=== PATIENT | female | born 1960 | race Two or more races ===

== ENCOUNTER 2023-12-31 18:57 | Emergency (ER) | payer OTHER, MEDICAID ==
[~2023-12-31] VITALS: Ht 165.1 cm; Wt 81.7 kg
[2023-12-31 19:38] VITALS: PULSE 102; RESP 20; O2SAT 95
[2023-12-31] MEDS: SODIUM CHLORIDE 0.9% 1,000 ML IV ONE ×2 (20:12→22:07)
[2023-12-31] MEDS: ONDANSETRON HCL 4 MG/2 ML VIAL IV ONE (20:16)
[2023-12-31] MEDS: IOHEXOL 300 MG/ML 100ML BOTTLE IJ ONE (20:32)
[2023-12-31 20:51] LABS: Alanine Aminotransferase 32 U/L (7-40); Albumin 4.3 g/dL (3.2-4.8); Alkaline Phosphatase 121 U/L (46-116); Anion Gap 10 (5-15); Aspartate Aminotransferase 40 U/L (13-40); BUN/Creatinine Ratio 18.3 (10.0-20.0); Blood Urea Nitrogen 17 mg/dL (9-23); Calcium 8.9 mg/dL (8.7-10.4); Carbon Dioxide 21 mmol/L (20-30); Chloride 107 mmol/L (98-107); Glucose 102 mg/dL (74-106); Lipase 66 U/L (12-53); Potassium 3.4 mmol/L (3.5-5.1); Sodium 138 mmol/L (136-145)
[2023-12-31 20:52] LABS: Bilirubin, Total 0.2 mg/dL (0.2-1.0); Total Protein 6.8 g/dL (5.7-8.2)
[2023-12-31 21:05] LABS: INR 1.08 (0.9-1.15); Partial Thromboplastin Time 29.3 SEC (24.5-34.5); Prothrombin Time 11.4 sec (9.3-11.8)
[2023-12-31 21:21] LABS: Hematocrit 30.5 % (36.0-46.0); Hemoglobin 10.2 g/dL (12.2-16.2); Mean Corpuscular Hemoglobin 28.6 pg (28.0-32.0); Mean Corpuscular Hgb Conc. 33.5 g/dL (32.0-36.0); Mean Corpuscular Volume 85.4 fL (80.0-100.0); Platelet Count (auto) 293 10^3/uL (140-450); Red Blood Cells 3.58 10^6/uL (4.0-5.20); Red Cell Distribution Width 15.5 % (11.8-14.3); White Blood Cell 14.5 10^3/uL (4.4-10.8)
[2023-12-31 21:30] LABS: Basophils % (manual) 0 (0.0-2.0); Blast Cells 0; Eosinophils % (manual) 0 (0-7); Metamyelocytes % 0; Myelocytes % 0; Promyelocytes % 0; Reactive Lymphocytes 0
[2023-12-31] MEDS: levoFLOXacin 500MG 100 ML IV ONE (21:44)
[2023-12-31 21:56] LABS: Anisocytosis Slight; Band Neutrophils % (manual) 22; Lymphocytes % (manual) 2 (10.0-50.0); Monocytes % (manual) 1 (0-12); Platelet Estimate Adequate
[2023-12-31] MEDS: MORPHINE SULFATE 4 MG/ML SYR/VIAL IV ONE (22:06)
[2023-12-31 23:19] LABS: Urine Bacteria None Seen /hpf (None Seen)
[2023-12-31] MEDS: KETOROLAC TROMETH 30 MG/ML 1ML VIAL IV ONE (23:30)
[2023-12-31 23:33] LABS: Urine Blood Negative /uL (Negative); Urine Clarity Clear (Clear); Urine Color Light-Yellow (Yellow); Urine Protein, UAD Negative (Negative); Urine Specific Gravity 1.038 (1.001-1.035); Urine Urobilinogen Normal (Negative); Urine WBC 2 /hpf (0 - 5); Urine pH 5.5 (5.0-9.0)
[2023-12-31] MEDS ORDERED: ZOFR4T SL (23:56)
[2024-01-01] VITALS: BP 94/48; PULSE 94; RESP 18; TEMP 98.8; O2SAT 94
== END 2024-01-01 00:52 | disposition home or self-care (01) ==
LOC: ER 18:57 → EDBD 18:57 → ER 01-01 00:49
DX: K52.9 Noninfective gastroenteritis and colitis, unspecified (principal); E11.9 Type 2 diabetes mellitus without complications; E66.9 Obesity, unspecified; Z68.30 Body mass index [BMI] 30.0-30.9, adult; Z86.2 Personal history of diseases of the blood and blood-forming organs and certain disorders involving the immune mechanism; Z98.890 Other specified postprocedural states; Z88.1 Allergy status to other antibiotic agents; Z88.8 Allergy status to other drugs, medicaments and biological substances
CPT/HCPCS: 36415; 71045; 74177; 80053; 81001; 83605; 83690; 83880; 84484; 85007; 85027; 85610; 85730; 93005; 96361; 96374; 96375; 99285; J1885; J2270; J2405; J7030; Q9967

== ENCOUNTER 2024-12-29 16:39 | Inpatient (IN) | payer OTHER, MEDICAID ==
[~2024-12-29] VITALS: Ht 160 cm; Wt 67.6 kg
[~2024-12-29 16:39] MED LIST: ZOFR4T SL
--- NOTE | 2024-12-29 17:39 | ED.PDOC ---
HPI Comments This is a 64-year-old female with past medical history of hypertension, dyslipidemia, and diabetes came to the hospital due to chest pain since 4 days. Pain is localized at substernal area, radiating to the neck and left arm, pressure-like in nature, 8/10 in intensity which worsened with taking deep breaths. She also reports of nausea, shortness of breath. She denies fever, cough, or any recent sick contact or chest trauma. Chief Complaint: Chest Pain Time Seen by MD: 17:08 Allergies: Coded Allergies: Acetaminophen (Verified Allergy, Severe, 12/31/23) Hydrocodone (Verified Allergy, Severe, 12/31/23) Ceftriaxone (Verified Allergy, Unknown, 12/31/23) Ciprofloxacin (Verified Allergy, Unknown, 12/31/23) Levofloxacin (Verified Allergy, Unknown, 12/31/23) Moxifloxacin (Verified Allergy, Unknown, 12/31/23) Trimethoprim (Verified Allergy, Unknown, 12/31/23) Home Meds Active Scripts Ondansetron Odt 4MG Tab (ZOFRAN PO) 4 Mg Tb, 4 MG SL QIDPRN PRN, #20 TAB ODT TAB-DISSOLVE IN MOUTH, THEN SWALLOW Prov:HAYES CASILLAS MD 12/31/23 Mode of Arrival: Ambulatory Past Medical History PAST MEDICAL HISTORY: Anemia, DM, GERD Surgical History: Hernia Repair LEGAL ADMINISTRATIVE ASSISTANT History: Denies all LEGAL ADMINISTRATIVE ASSISTANT Hx Family History Family History: Unknown Social History Smoker: Non-Smoker Alcohol: Denies ETOH Use Drugs: Denies Drug Use Lives In: Home Physical Exam General Appearance: No Apparent Distress, Normal HEENT: Normal ENT Inspection, Pharynx Normal, TMs Normal Neck: Full Range of Motion, Non-Tender, Normal, Normal Inspection Respiratory: Chest Non-Tender, Lungs Clear, No Accessory Muscle Use, No Respiratory Distress, Normal Breath Sounds Cardiovascular: No Edema, No JVD, No Murmur, No Gallop, Normal Peripheral Pulses, Regular Rate/Rhythm Breast Exam: Deferred Gastrointestinal: No Organomegaly, Non Tender, No Pulsatile Mass, Normal Bowel Sounds, Soft Genitalia: Deferred Pelvic: Deferred Rectal: Deferred Extremities: No calf tenderness, Normal capillary refill, Normal inspection, Normal range of motion, Non-tender, No pedal edema Musculoskeletal : Apperance: Normal Neurologic: Alert, senior medical transcriptionist II-XII nml as Tested, No Motor Deficits, Normal Affect, Normal Mood, No Sensory Deficits Cerebellar Function: Normal Reflexes: Normal Skin: Dry, Normal Color, Warm Lymphatic: No Adenopathy EKG EKG : Comments Sinus rhythm with no significant ST or T-wave changes. Was a procedure done? Was a procedure done?: No CP Differential Dx Differential Diagnosis: Electrolyte Disorder Differential Diagnosis: Angina, Chest Wall Pain, Costochondritis, Esophageal reflux/spasm, Gastritis, Myocardial Infarction, Pericarditis X-Ray, Labs, Meds, VS Vital Signs Date Time Temp Pulse Resp B/P (MAP) Pulse Ox O2 Delivery O2 Flow Rate FiO2 12/29/24 17:41 67 12/29/24 17:03 98.0 75 19 151/59 98 98.0 12/29/24 16:43 71 Lab Test 12/29/24 18:10 12/29/24 17:13 Range/Units Troponin I High Sensitivity Pending < 3 L </=34 ng/L White Blood Count 6.9 4.4-10.8 10^3/uL Red Blood Count 4.26 4.0-5.20 10^6/uL Hemoglobin 10.7 L 12.2-16.2 g/dL Hematocrit 34.1 L 36.0-46.0 % Mean Corpuscular Volume 80.1 80.0-100.0 fL Mean Corpuscular Hemoglobin 25.1 L 28.0-32.0 pg Mean Corpuscular Hemoglobin Concent 31.4 L 32.0-36.0 g/dL Red Cell Distribution Width 20.6 H 11.8-14.3 % Platelet Count 259 140-450 10^3/uL Mean Platelet Volume 8.7 6.9-10.8 fL Neutrophils (%) (Auto) 74.5 37.0-80.0 % Lymphocytes (%) (Auto) 12.9 10.0-50.0 % Monocytes (%) (Auto) 8.8 0.0-12.0 % Eosinophils (%) (Auto) 3.4 0.0-7.0 % Basophils (%) (Auto) 0.4 0.0-2.0 % Neutrophils # (Auto) 5.1 1.6-8.6 10 ^3/uL Lymphocytes # (Auto) 0.9 0.4-5.4 10 ^3/uL Monocytes # (Auto) 0.6 0-1.3 10 ^3/uL Eosinophils # (Auto) 0.2 0-0.8 10 ^3/uL Basophils # (Auto) 0 0-0.2 10 ^3/uL Nucleated Red Blood Cells 0.3 % Sodium Level 141 136-145 mmol/L Potassium Level 4.4 3.5-5.1 mmol/L Chloride Level 108 H 98-107 mmol/L Carbon Dioxide Level 22 20-31 mmol/L Anion Gap 11 5-15 Blood Urea Nitrogen 9 9-23 mg/dL Creatinine 0.91 0.550-1.02 mg/dL Glomerular Filtration Rate Calc 70 >90 mL/min BUN/Creatinine Ratio 9.9 L 10.0-20.0 Serum Glucose 108 H 74-106 mg/dL Calcium Level 9.1 8.7-10.4 mg/dL Total Bilirubin 0.2 0.2-1.0 mg/dL Aspartate Amino Transferase (AST) 27 13-40 U/L Alanine Aminotransferase (ALT) 19 7-40 U/L Alkaline Phosphatase 110 46-116 U/L B-Type Natriuretic Peptide Pending Total Protein 7.6 5.7-8.2 g/dL Albumin 4.5 3.2-4.8 g/dL Time of 1ST Reevaluation: 18:34 Reevaluation 1ST: Unchanged Patient Education/Counseling: Diagnosis, Treatment, Prognosis, Need For Follow Up Family Education/Counseling: No Family Present Comments Patient came to the hospital because of chest pain. Chest x-ray showed no significant intrathoracic abnormalities. EKGs showed normal sinus rhythm with no significant ST or T-wave changes. Patient was vitally within normal limits. Physical examination was nonsignificant. The patient was given aspirin, atorvastatin and morphine. Subsequent checkup, patient was still complaining of chest pain. The patient will be admitted in hospital for further woke up, and possible expert opinion SEPSIS Sepsis Screen Date sepsis recognized/suspect: Dec 29, 2024 Time Sepsis recognized/suspect: 1640 Recent Procedure: No On Antibiotic Therapy: No Respiratory Rate >20: No Heart Rate >90: No Temp<36 C (96.8 F) or >38.3 C: No SBP <90 or MAP <65 mmHG: No New Acute Mental Status Change: No Is the patient on CPAP, BIPAP,: No Physician Orders Troponin-I Hs (12/29/24 17:51) Troponin-I Hs (12/29/24 19:51) Electrocardigram (12/29/24 17:51) Electrocardigram (12/29/24 19:51) Drug Screen (12/29/24 17:35) Chest Xray 1 View (12/29/24 17:35) B-Type Natriuretic Peptide (12/29/24 17:35) Vital Signs Date Time Temp Pulse Resp B/P (MAP) Pulse Ox O2 Delivery O2 Flow Rate FiO2 12/29/24 17:41 67 12/29/24 17:03 98.0 75 19 151/59 98 98.0 12/29/24 16:43 71 Laboratory Tests Test 12/29/24 17:13 White Blood Count 6.9 10^3/uL (4.4-10.8) Departure 1 Departure Time of Disposition: 19:00 Impression: Primary Impression: Chest pain Additional Impression: Angina pectoris Disposition: ADMITTED INPATIENT Admit to: [facility] Condition: Guarded Critical Care Note Critical Care Time?: No Stability Stability form required: No Heart Score Heart Score: Heart Score Response (Comments) Value History Moderate Suspicious 1 EKG Normal 0 Age >65 2 Risk Factors >3 or Hx ASHD 2 Troponin Normal limit 0 Total 5 ISA CHAUHAN RESDIENT Dec 29, 2024 17:39
--- NOTE | 2024-12-29 17:42 | ECG ---
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
[2024-12-29] MEDS ORDERED: MORPHINE SULFATE 4 MG/ML SYR/VIAL IV ONE (17:45)
[2024-12-29] MEDS: ATORVASTATIN 20 MG TAB PO ONE (17:45)
[2024-12-29] MEDS: ONDANSETRON HCL 4 MG/2 ML VIAL IV ONE (17:45)
[2024-12-29] MEDS: NITROGLYCERIN 0.4 MG SL TAB SL ONE (17:45)
[2024-12-29 18:05] LABS: Hemoglobin 10.7 g/dL (12.2-16.2)
[2024-12-29 18:07] LABS: Hematocrit 34.1 % (36.0-46.0); Mean Corpuscular Hemoglobin 25.1 pg (28.0-32.0); Mean Corpuscular Volume 80.1 fL (80.0-100.0); Nucleated Red Blood Cells % 0.3 %
[2024-12-29 18:21] LABS: Alanine Aminotransferase 19 U/L (7-40); Albumin 4.5 g/dL (3.2-4.8); Alkaline Phosphatase 110 U/L (46-116); Anion Gap 11 (5-15); BUN/Creatinine Ratio 9.9 (10.0-20.0); Blood Urea Nitrogen 9 mg/dL (9-23); Calcium 9.1 mg/dL (8.7-10.4); Carbon Dioxide 22 mmol/L (20-31); Potassium 4.4 mmol/L (3.5-5.1); Sodium 141 mmol/L (136-145); Total Protein 7.6 g/dL (5.7-8.2)
[2024-12-29 18:26] LABS: Bilirubin, Total 0.2 mg/dL (0.2-1.0); Chloride 108 mmol/L (98-107); Glucose 108 mg/dL (74-106)
--- NOTE | 2024-12-29 18:28 | DVH ---
EXAM: XY CHEST XRAY 1 VIEW HISTORY: chest ppain TECHNIQUE: 1 view of the chest COMPARISON: XY CHEST PORTABLE on DOS: 12/31/23 FINDINGS/IMPRESSION: LUNGS: No pleural effusion, consolidation, or pneumothorax MEDIASTINUM: Unremarkable BONES: No acute osseous abnormality OTHER: None
[2024-12-29] MEDS: ATORVASTATIN 20 MG TAB PO SCH (22:00)
--- NOTE | 2024-12-29 22:45 | DVHHP2 ---
History of Present Illness Reason for Visit: Chest pain History of Present Illness 64-year-old female presents for evaluation of chest pain. Patient endorses a four day history of substernal pressure-like/sharp pain that is nonradiating. She also reports left arm numbness and an intermittent headache. Denies cough or fever. No other acute complaints reported. Past Medical History Hypertension, GERD, dyslipidemia, anemia Past Surgical History Cholecystectomy, appendectomy, right nephrectomy, hernia repair Family History Noncontributory Smoke: No ALCOHOL: none Drugs: None Lives: with Family Review of Systems Review of Systems Review of systems are currently negative otherwise addressed in HPI. Allergies: Coded Allergies: Acetaminophen (Verified Allergy, Severe, 12/31/23) Hydrocodone (Verified Allergy, Severe, 12/31/23) Ceftriaxone (Verified Allergy, Unknown, 12/31/23) Ciprofloxacin (Verified Allergy, Unknown, 12/31/23) Levofloxacin (Verified Allergy, Unknown, 12/31/23) Moxifloxacin (Verified Allergy, Unknown, 12/31/23) Trimethoprim (Verified Allergy, Unknown, 12/31/23) Medications Current Medications Medications Dose Ordered Sig/Reena Route Start Time Stop Time Status Last Admin Dose Admin Lisinopril 10 mg DAILY PO 12/30/24 10:00 Atorvastatin Calcium 20 mg HS PO 12/29/24 22:00 Aspirin 81 mg DAILY PO 12/30/24 10:00 Ondansetron HCl 4 mg Q4HP PRN IV 12/29/24 20:15 Nitroglycerin 0.4 mg Q5MINP PRN SL 12/29/24 20:15 Morphine Sulfate 2 mg Q30M PRN IV 12/29/24 20:15 Exam Vital Signs Vital Signs Date Time Temp Pulse Resp B/P (MAP) Pulse Ox O2 Delivery O2 Flow Rate FiO2 12/29/24 20:44 98.7 61 20 126/65 (85) 97 98.7 12/29/24 20:44 Room Air Exam Gen: 64-year-old female Skin: Warm, dry, normal color and texture, no rash. HEENT: Normocephalic atraumatic, mucous membranes moist and pink. Neck: Cervical and supraclavicular nodes normal without enlargement, trachea is midline, thyroid gland is normal without masses. Pulmonary: Clear to auscultation and percussion bilaterally. Cardiac: Regular rate and rhythm. No murmur Abdomen: Soft, nontender, nondistended, bowel sounds present all 4 quadrants, no guarding, no rigidity, no organomegaly. Extremities: No cyanosis, clubbing, no edema Neuro: Cranial nerves II through XII grossly intact, normal affect and speech, no focal motor deficits. In mild distress Labs/Xrays ORDERING PHYSICIAN: ISA CHAUHAN PROCEDURE(s): CXR1 - CHEST XRAY 1 VIEW REASON: chest ppain ORDER NUMBER(s): [id number], ACCESSION NUMBER(s): [id number] EXAM: XY CHEST XRAY 1 VIEW HISTORY: chest ppain TECHNIQUE: 1 view of the chest COMPARISON: XY CHEST PORTABLE on DOS: 12/31/23 FINDINGS/IMPRESSION: LUNGS: No pleural effusion, consolidation, or pneumothorax MEDIASTINUM: Unremarkable BONES: No acute osseous abnormality OTHER: None Labs Test 12/29/24 18:10 12/29/24 17:13 Range/Units Troponin I High Sensitivity 3 L </=34 ng/L White Blood Count 6.9 4.4-10.8 10^3/uL Red Blood Count 4.26 4.0-5.20 10^6/uL Hemoglobin 10.7 L 12.2-16.2 g/dL Hematocrit 34.1 L 36.0-46.0 % Mean Corpuscular Volume 80.1 80.0-100.0 fL Mean Corpuscular Hemoglobin 25.1 L 28.0-32.0 pg Mean Corpuscular Hemoglobin Concent 31.4 L 32.0-36.0 g/dL Red Cell Distribution Width 20.6 H 11.8-14.3 % Platelet Count 259 140-450 10^3/uL Mean Platelet Volume 8.7 6.9-10.8 fL Neutrophils (%) (Auto) 74.5 37.0-80.0 % Lymphocytes (%) (Auto) 12.9 10.0-50.0 % Monocytes (%) (Auto) 8.8 0.0-12.0 % Eosinophils (%) (Auto) 3.4 0.0-7.0 % Basophils (%) (Auto) 0.4 0.0-2.0 % Neutrophils # (Auto) 5.1 1.6-8.6 10 ^3/uL Lymphocytes # (Auto) 0.9 0.4-5.4 10 ^3/uL Monocytes # (Auto) 0.6 0-1.3 10 ^3/uL Eosinophils # (Auto) 0.2 0-0.8 10 ^3/uL Basophils # (Auto) 0 0-0.2 10 ^3/uL Nucleated Red Blood Cells 0.3 % Sodium Level 141 136-145 mmol/L Potassium Level 4.4 3.5-5.1 mmol/L Chloride Level 108 H 98-107 mmol/L Carbon Dioxide Level 22 20-31 mmol/L Anion Gap 11 5-15 Blood Urea Nitrogen 9 9-23 mg/dL Creatinine 0.91 0.550-1.02 mg/dL Glomerular Filtration Rate Calc 70 >90 mL/min BUN/Creatinine Ratio 9.9 L 10.0-20.0 Serum Glucose 108 H 74-106 mg/dL Calcium Level 9.1 8.7-10.4 mg/dL Total Bilirubin 0.2 0.2-1.0 mg/dL Aspartate Amino Transferase (AST) 27 13-40 U/L Alanine Aminotransferase (ALT) 19 7-40 U/L Alkaline Phosphatase 110 46-116 U/L B-Type Natriuretic Peptide 432.67 0-100 pg/mL Total Protein 7.6 5.7-8.2 g/dL Albumin 4.5 3.2-4.8 g/dL SEPSIS Sepsis Screen Date sepsis recognized/suspect: Dec 29, 2024 Time Sepsis recognized/suspect: 2050 Recent Procedure: No On Antibiotic Therapy: No Respiratory Rate >20: No Heart Rate >90: No Temp<36 C (96.8 F) or >38.3 C: No SBP <90 or MAP <65 mmHG: No New Acute Mental Status Change: No Is the patient on CPAP, BIPAP,: No Physician Orders Electrocardigram (12/29/24 17:51) Electrocardigram (12/29/24 19:51) Drug Screen (12/29/24 17:35) Chest Xray 1 View (12/29/24 17:35) Lisinopril Tablet (Zestril Tablet) (12/30/24 10:00) Atorvastatin (Lipitor) (12/29/24 22:00) Aspirin Tablet (12/30/24 10:00) Basic Metabolic Panel (12/30/24 04:00) Admit (12/29/24 20:01) Ondansetron Hcl (Zofran) (12/29/24 20:15) Cardiac Diet-2gna,Lofat,Lochol (12/30/24 Breakfast) Echo 2d Mode Cardiac Dop (12/29/24 20:01) Condition: Fair (12/29/24 20:01) Bedrest With Bathroom Privileg (12/29/24 20:01) Nitroglycerin Sublingual (Ntrostat Subli (12/29/24 20:15) Morphine Sulfate Injection (12/29/24 20:15) Stat Ekg For Chest Pain (12/29/24 20:01) Notify Md Of Changes From Base (12/29/24 20:) Market Research Worker For 24 Hours (12/29/24 20:01) Emergency Dysrhythmia Protocol (12/29/24 20:01) Rhythm Strips Once Every Shift (12/29/24 20:01) Oxygen By Nasal Cannula (12/29/24 20:01) Enalapril Tablet (Vasotec Tablet) (12/30/24 10:00) Vital Signs Date Time Temp Pulse Resp B/P (MAP) Pulse Ox O2 Delivery O2 Flow Rate FiO2 12/29/24 20:44 98.7 61 20 126/65 (85) 97 98.7 12/29/24 20:44 65 20 97 Room Air 12/29/24 17:41 67 12/29/24 17:03 98.0 75 19 151/59 98 98.0 12/29/24 16:43 71 Laboratory Tests Test 12/29/24 17:13 White Blood Count 6.9 10^3/uL (4.4-10.8) Assessment/Plan Assessment/Plan Assessment Chest pain rule out ACS Hypertension Chronic anemia Plan Admit the patient to telemetry to the hospitalist Echocardiogram pending Resume home medications Continue treatment per orders. Plan discussed with: Patient My Orders Orders - AGUSTIN SALINAS Procedure Category Date Status Time Lisinopril Tablet PHA 12/30/24 In Process (Zestril Tablet) 10:00 Atorvastatin (Lipitor) PHA 12/29/24 In Process 22:00 Aspirin Tablet PHA 12/30/24 In Process 10:00 Basic Metabolic Panel LAB 12/30/24 Verified 04:00 Admit ADMIT 12/29/24 Transmitted 20:01 Ondansetron Hcl PHA 12/29/24 In Process (Zofran) 20:15 Cardiac DIET 12/30/24 Transmitted Diet-2gna,Lofat,Lochol Breakfast Echo 2d Mode Cardiac US 12/29/24 Logged DOP 20:01 Condition: Fair [facility] 12/29/24 In Process 20:01 Bedrest With Bathroom [facility] 12/29/24 In Process Privileg 20:01 Nitroglycerin [facility] 12/29/24 In Process Sublingual (Ntrostat 20:15 Morphine Sulfate [facility] 12/29/24 In Process Injection 20:15 Stat Ekg For Chest [facility] 12/29/24 In Process Pain 20:01 Notify Of Changes [facility] 12/29/24 In Process From Base 20:01 Market Research Worker For [facility] 12/29/24 In Process 24 Hours 20:01 Emergency Dysrhythmia [facility] 12/29/24 In Process Protocol 20:01 Rhythm Strips Once [facility] 12/29/24 In Process Every Shift 20:01 Oxygen By Nasal RT 12/29/24 Transmitted Cannula 20:01 Enalapril Tablet [facility] 12/30/24 Verified (Vasotec Tablet) 10:00 Date of Service: Dec 29, 2024 Billing Provider: AGUSTIN SALINAS Common Visit Codes: [id number] INP/OBS CARE (HIGH) AGUSTIN SALINAS Dec 29, 2024 22:45
[2024-12-30] VITALS (7 sets, daily range): BP systolic 126–140; BP diastolic 51–86; PULSE 56–67; RESP 18–19; TEMP 97–97.6; O2SAT 93–98
[2024-12-30] MEDS: NITROGLYCERIN 0.4 MG SL TAB SL PRN (00:29)
[2024-12-30] MEDS ORDERED: TRAM50TA2 PO (00:34)
[2024-12-30] MEDS ORDERED: MONT-8 PO (00:34)
[2024-12-30] MEDS ORDERED: PANT40T PO (00:34)
[2024-12-30] MEDS: MORPHINE SULFATE INJ 2 MG/ml SYRG IV PRN ×2 (00:40→12:52)
--- NOTE | 2024-12-30 01:09 | ECG ---
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
--- NOTE | 2024-12-30 01:09 | ECG ---
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
[2024-12-30] MEDS: IBUPROFEN 400 MG TAB PO ONE (02:15)
[2024-12-30 07:10] LABS: Anion Gap 9 (5-15); Carbon Dioxide 26 mmol/L (20-31); Potassium 4.3 mmol/L (3.5-5.1); Sodium 142 mmol/L (136-145)
[2024-12-30 07:11] LABS: Calcium 9.1 mg/dL (8.7-10.4)
[2024-12-30 07:16] LABS: BUN/Creatinine Ratio 11.2 (10.0-20.0); Blood Urea Nitrogen 10 mg/dL (9-23); Glucose 92 mg/dL (74-106)
--- NOTE | 2024-12-30 07:19 | ECG ---
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
[2024-12-30 07:20] LABS: Chloride 107 mmol/L (98-107)
[2024-12-30] MEDS ORDERED: LISINOPRIL 5 MG TAB PO SCH (10:00)
[2024-12-30] MEDS: ENALAPRIL MALEATE 2.5 MG TAB PO SCH (11:09)
--- NOTE | 2024-12-30 11:28 | DVHPN2 ---
Subjective The patient is seen and examined at bedside. The patient complained of severe abdominal pain. The patient is allergic to [place] but can take morphine Reviewed: Care Plan, H&P, Labs, Medications, Previous Orders, Radiology Changes from previous H/P or p: No Changes Objective Vitals Vital Signs Date Time Temp Pulse Resp B/P (MAP) Pulse Ox O2 Delivery O2 Flow Rate FiO2 12/30/24 11:09 145/80 12/30/24 08:51 97.0 64 19 97 97.0 12/30/24 00:00 Room Air* 0 21 Intake/Output Intake and Output 12/30/24 07:00 Intake Total 0 ml Balance 0 ml Intake Oral 0 ml General Appearance: Alert, Oriented X3, Cooperative, mild distress HEENT: Atraumatic, PERRLA, EOMI, Mucous membr. moist/pink Neck: Supple Lungs: Clear to auscultation, Normal air movement Cardiovascular: Regular rate, Normal S1, Normal S2, No murmurs, Gallops, Rubs Abdomen: Normal bowel sounds, Soft, No tenderness Neuro: Cranial nerves 3-12 NL Psych/Mental Status: Mental status NL Medications Current Medications Medications Dose Ordered Sig/Reena Route Start Time Stop Time Status Last Admin Dose Admin Atorvastatin Calcium 20 mg HS PO 12/29/24 22:00 Aspirin 81 mg DAILY PO 12/30/24 10:00 12/30/24 10:00 81 MG Ondansetron HCl 4 mg Q4HP PRN IV 12/29/24 20:15 Nitroglycerin 0.4 mg Q5MINP PRN SL 12/29/24 20:15 12/30/24 00:29 0.4 MG Morphine Sulfate 2 mg Q30M PRN IV 12/29/24 20:15 12/30/24 01:19 2 MG Enalapril Maleate 2.5 mg DAILY PO 12/30/24 10:00 12/30/24 11:09 2.5 MG Laboratory Results Laboratory Tests 12/29/24 17:13 12/30/24 06:32 Chemistry Test 12/29/24 17:13 12/30/24 06:32 Albumin 4.5 g/dL (3.2-4.8) Calcium Level 9.1 mg/dL (8.7-10.4) 9.1 mg/dL (8.7-10.4) Total Protein 7.6 g/dL (5.7-8.2) Cardiac Markers Test 12/29/24 17:13 B-Type Natriuretic Peptide 432.67 pg/mL (0-100) LFT Test 12/29/24 17:13 Alanine Aminotransferase (ALT) 19 U/L (7-40) Alkaline Phosphatase 110 U/L (46-116) Aspartate Amino Transferase (AST) 27 U/L (13-40) Total Bilirubin 0.2 mg/dL (0.2-1.0) Labs and/or images reviewed: Labs reviewed by me Assessment/Plan Assessment/Plan Chest pain rule out ACS Hypertension Chronic anemia Abdominal pain Continuing current management. We will give morphine PRN for abdominal pain. Waiting for objective c developer to see the patient. Continuing hypertensive medication. This medical document was created using an electronic medical record system with M*M [employer] direct computerized dictation system. Although this document has been carefully reviewed, there may still be some phonetic and typographical errors. These areas are purely typographical due to imperfections of the software programs, and do not reflect any compromise in the patient's medical care. Plan discussed with: Patient Date of Service: Dec 30, 2024 Billing Provider: LAURA AL MD Common Visit Codes: [id number] INP/OBS CARE(HIGH) LAURA AL MD Dec 30, 2024 11:28
--- NOTE | 2024-12-30 20:02 | DVHSR ---
APPROVED REPORT EXAM: Two-dimensional and M-mode echocardiogram with Doppler and color Doppler. Blood Pressure: 132/5367 mmHg INDICATION Chest Pain RISK FACTORS Height: 5'3", Weight: 152 DIMENSIONS LVDd4.4 (3.8-5.7cm)LA (2D)4.0 (1.9-4.0cm)Aortic Root3.2 (2.0-3.7cm) LVDs2.4 (2.5-4.0cm)LA (MM) (1.9-4.0cm)Aortic Cusp Exc1.4 (1.5-2.0cm) EF (%) 76.0 (55-70%)Rt. Atrium3.2 (1.9-4.0cm)Asc. Aorta3.0 cm IVSd0.9 (0.7-1.1cm)RV (D)2.9 (1.8-2.4cm) PWd0.7 (0.7-1.1cm) Mitral Valve MitralMitral Stenosis E wave0.63m/sMV Mean GR.mmHg A wave0.74m/sMV Peak GR.mmHg E/A ratio0.92D MVAcm2 DECEL [id number] 1/2 Timems Aortic Valve Aortic ValveAortic Stenosis V10.98m/Wally Mean GR.4mmHg V21.45m/Wally Peak GR.8mmHg LVOT Diameter2.0 (1.8-2.4cm)Doppler AVA2.12cm2 Pulmonic Valve V20.78m/s Tricuspid Valve TR Velocity2.10m/s [id number] Other Information Quality : Technically LimitedRhythm : Technically limited study due to body habitus. Conclusion MILD LVH AND MILD LV DIASTOLIC DYSFUNCTION LV EF IS 75% SLIGHTLY DILATED RV BUT NORMAL FUNCTION AORTIC SCLEROSIS NORMAL MV,TV AND PV NO EFFUSION
[2024-12-30] MEDS: ONDANSETRON HCL 4 MG/2 ML VIAL IV PRN (21:18)
[2024-12-31] VITALS (7 sets, daily range): BP systolic 109–131; BP diastolic 54–80; PULSE 49–65; RESP 16–19; TEMP 97.1–98; O2SAT 96–98
[2024-12-31] MEDS: KETOROLAC TROMETH 30 MG/ML 1ML VIAL IV ONE (01:30)
--- NOTE | 2024-12-31 11:02 | DVHPN2 ---
Subjective The patient is seen and examined at bedside. The patient complained of severe abdominal pain. The patient is allergic to [place] but can take morphine Reviewed: Care Plan, H&P, Labs, Medications, Previous Orders, Radiology Changes from previous H/P or p: No Changes Objective Vitals Vital Signs Date Time Temp Pulse Resp B/P (MAP) Pulse Ox O2 Delivery O2 Flow Rate FiO2 12/31/24 10:56 55 16 109/68 12/31/24 08:58 97.8 96 97.8 12/30/24 20:00 Room Air* 0 21 Intake/Output Intake and Output 12/31/24 06:59 Intake Total 974 ml Balance 974 ml Intake Oral 974 ml # Voids 4 General Appearance: Alert, Oriented X3, Cooperative, mild distress HEENT: Atraumatic, PERRLA, EOMI, Mucous membr. moist/pink Neck: Supple Lungs: Clear to auscultation, Normal air movement Cardiovascular: Regular rate, Normal S1, Normal S2, No murmurs, Gallops, Rubs Abdomen: Normal bowel sounds, Soft, No tenderness Neuro: Cranial nerves 3-12 NL Psych/Mental Status: Mental status NL Medications Current Medications Medications Dose Ordered Sig/Reena Route Start Time Stop Time Status Last Admin Dose Admin Atorvastatin Calcium 20 mg HS PO 12/29/24 22:00 12/30/24 21:14 20 MG Aspirin 81 mg DAILY PO 12/30/24 10:00 12/31/24 10:54 81 MG Ondansetron HCl 4 mg Q4HP PRN IV 12/29/24 20:15 12/31/24 10:55 4 MG Nitroglycerin 0.4 mg Q5MINP PRN SL 12/29/24 20:15 12/30/24 00:29 0.4 MG Morphine Sulfate 2 mg Q30M PRN IV 12/29/24 20:15 12/30/24 01:19 2 MG Enalapril Maleate 2.5 mg DAILY PO 12/30/24 10:00 12/31/24 10:54 2.5 MG Morphine Sulfate 1 mg Q6HP PRN IV 12/30/24 12:15 12/31/24 10:56 1 MG Laboratory Results Laboratory Tests 12/29/24 17:13 12/30/24 06:32 Labs and/or images reviewed: Labs reviewed by me Assessment/Plan Assessment/Plan Chest pain rule out ACS Hypertension Chronic anemia Abdominal pain Continuing current management. We will give morphine PRN for abdominal pain. Waiting for gas singer to see the patient. Continuing hypertensive medication. will order CT abdomen and pelvis. If negative will DC home. CT scan abdomen and pelvis only show mild stool burden. Patient complains she has no BM for 5 days, however her chart state that she has 1 BM on 12/29 and she refuse stool softener. I will give her miralax and fleet enema x 1. I will DC her. ADDENDUM: Per RNNataliya, the patient complains of chest pain, BP 163/88, she stat she is dizzy, EKG : Normal sinus rhythm. ? panic attack. I will hold DC tonight. Will put in cardiology consult and Psy consult.DC morphine. This medical document was created using an electronic medical record system with [employer] direct computerized dictation system. Although this document has been carefully reviewed, there may still be some phonetic and typographical errors. These areas are purely typographical due to imperfections of the software programs, and do not reflect any compromise in the patient's medical care. Plan discussed with: Patient My Orders Orders - LAURA AL MD Procedure Category Date Status Time Morphine Sulfate PHA 12/30/24 In Process Injection 12:15 Date of Service: Dec 31, 2024 Billing Provider: LAURA AL MD Common Visit Codes: [id number] INP/OBS CARE(HIGH) LAURA AL MD Dec 31, 2024 11:02
[2024-12-31 12:22] LABS: Hematocrit 37.9 % (36.0-46.0); Hemoglobin 12.5 g/dL (12.2-16.2); Mean Corpuscular Hemoglobin 28.6 pg (28.0-32.0); Mean Corpuscular Volume 86.6 fL (80.0-100.0); Nucleated Red Blood Cells % 0.0 %
[2024-12-31 12:30] LABS: Chloride 102 mmol/L (98-107); Potassium 4.5 mmol/L (3.5-5.1); Sodium 139 mmol/L (136-145)
[2024-12-31 12:31] LABS: Anion Gap 8 (5-15); Calcium 10.3 mg/dL (8.7-10.4); Carbon Dioxide 29 mmol/L (20-31)
[2024-12-31 12:36] LABS: BUN/Creatinine Ratio 13.0 (10.0-20.0); Blood Urea Nitrogen 15 mg/dL (9-23); Glucose 90 mg/dL (74-106)
--- NOTE | 2024-12-31 13:14 | DVH ---
EXAM: CT CT AB PEL WO CON-NO ORAL OR IV INDICATION: bowel obstruction TECHNIQUE: Volumetric multidetector CT images of the abdomen and pelvis were obtained without contras t. All CT scans at this facility use dose modulation, iterative reconstruction, and/or weight based d osing when appropriate to reduce radiation dose to as low as reasonably achievable. COMPARISON: CT CT AB PEL WITH IV CON ONLY on DOS: 12/31/23 FINDINGS: [LOWER CHEST]: The partially visualized lung bases are clear without a pleural effusion. The cardiac size is normal without pericardial effusion. [LIVER]: Normal hepatic size without suspicious focal lesion. [GALLBLADDER AND BILIARY TREE]: Surgically absent. [SPLEEN]: Unremarkable. [PANCREAS]: Unremarkable. [ADRENAL GLANDS]: Unremarkable [KIDNEYS]: No hydronephrosis. No nephroureterolithiasis. Flattened morphology of the left kidney. Co arse calcification along the margin of the left kidney. [BLADDER]: Decompressed [REPRODUCTIVE ORGANS]: Unremarkable. [BOWEL/MESENTERY]: Stomach is normal. No CT evidence of bowel obstruction. mild stool burden. [ASCITES]: Absent [LYMPHADENOPATHY]: No pathologically enlarged lymph nodes by CT size criteria [VASCULATURE]: No aneurysmal dilatation. [ABDOMINAL WALL]: Postoperative changes along the left low abdominal wall [MUSCULOSKELETAL]: No acute fracture or aggressive focal osseous lesion. IMPRESSION: 1. No CT evidence of an acute abdominal/pelvic process. 2. No CT evidence of bowel obstruction. 3. Mild stool burden.
--- NOTE | 2024-12-31 13:15 | DVHDS2 ---
Discharge Summary Date of Admission Dec 29, 2024 at 20:01 Date of Discharge: Dec 31, 2024 Labs/Diagnostic Data: Laboratory Results Test 12/31/24 11:53 12/29/24 18:10 12/29/24 17:13 White Blood Count 7.9 10^3/uL (4.4-10.8) Red Blood Count 4.38 10^6/uL (4.0-5.20) Hemoglobin 12.5 g/dL (12.2-16.2) Hematocrit 37.9 % (36.0-46.0) Mean Corpuscular Volume 86.6 fL (80.0-100.0) Mean Corpuscular Hemoglobin 28.6 pg (28.0-32.0) Mean Corpuscular Hemoglobin Concent 33.0 g/dL (32.0-36.0) Red Cell Distribution Width 14.2 % (11.8-14.3) Platelet Count 412 10^3/uL (140-450) Mean Platelet Volume 6.8 fL (6.9-10.8) Neutrophils (%) (Auto) 53.0 % (37.0-80.0) Lymphocytes (%) (Auto) 36.1 % (10.0-50.0) Monocytes (%) (Auto) 8.0 % (0.0-12.0) Eosinophils (%) (Auto) 2.4 % (0.0-7.0) Basophils (%) (Auto) 0.5 % (0.0-2.0) Neutrophils # (Auto) 4.2 10 ^3/uL (1.6-8.6) Lymphocytes # (Auto) 2.8 10 ^3/uL (0.4-5.4) Monocytes # (Auto) 0.6 10 ^3/uL (0-1.3) Eosinophils # (Auto) 0.2 10 ^3/uL (0-0.8) Basophils # (Auto) 0 10 ^3/uL (0-0.2) Nucleated Red Blood Cells 0.0 % Sodium Level 139 mmol/L (136-145) Potassium Level 4.5 mmol/L (3.5-5.1) Chloride Level 102 mmol/L (98-107) Carbon Dioxide Level 29 mmol/L (20-31) Anion Gap 8 (5-15) Blood Urea Nitrogen 15 mg/dL (9-23) Creatinine 1.15 mg/dL (0.550-1.02) Glomerular Filtration Rate Calc 53 mL/min (>90) BUN/Creatinine Ratio 13.0 (10.0-20.0) Serum Glucose 90 mg/dL (74-106) Calcium Level 10.3 mg/dL (8.7-10.4) Troponin I High Sensitivity 3 ng/L (</=34) Total Bilirubin 0.2 mg/dL (0.2-1.0) Aspartate Amino Transferase (AST) 27 U/L (13-40) Alanine Aminotransferase (ALT) 19 U/L (7-40) Alkaline Phosphatase 110 U/L (46-116) B-Type Natriuretic Peptide 432.67 pg/mL (0-100) Total Protein 7.6 g/dL (5.7-8.2) Albumin 4.5 g/dL (3.2-4.8) Other Laboratory Tests 12/31/24 11:53 Final Diagnosis/Problems List CHEST PAIN, GASTROENTERITIS Discharge Disposition: Home Discharge Instruct/Medications Diet: Cardiac 2g Na,low cholest Activity: No Restrictions, As Tolerated Follow Up/Referral: PCP 1-2 WEEKS Medications: RESUME HOME MED Scheduled Montelukast Sodium (Montelukast Sodium), 1 TAB PO DAILY, (Reported) Pantoprazole Sodium Sesquihydr (Pantoprazole Sodium), 1 TAB PO DAILY, (Reported) Scheduled PRN Ondansetron Odt 4MG Tab (Zofran Po), 4 MG SL QIDPRN PRN Tramadol Hcl (Tramadol Hcl), 1 TAB PO DAILYPRN PRN for pain, (Reported) Discharge Statement: "Patient was advised to return to the ER or call 911 if any headaches, dizziness, shortness of breath, chest pain, abdominal pain, bleeding, fevers, or worsening of medical condition. Patient was counseled about treatment plan, medications, possible side effects, patientverbalized understanding. All questions were answered to the best of my ability. This discharge took greater then 30 minutes in planning, reviewing documentation, counseling the patient, and discussing with other team members." ASSESSMENT ASSESSMENT Assessment CHEST PAIN, GASTROENTERITIS LAURA AL MD Dec 31, 2024 13:15
[2024-12-31] MEDS: POLYETHYLENE GLYCOL 17 GM PWDR PO ONE (15:24)
[2024-12-31 20:48] LABS: Amphetamine Screen, Urine Neg (NEGATIVE); Barbiturate Scree,Urine Neg (NEGATIVE); Benzodiazephine Screen, Urine Neg (NEGATIVE); Cannabinoid Screen, Urine Neg (NEGATIVE); Cocaine Screen, Urine Neg (NEGATIVE); Opiate Scree,Urine Neg (NEGATIVE); Phencyclidine Screen, Urine Neg (NEGATIVE)
[2025-01-01 01:00] VITALS: BP 143/94; PULSE 64; RESP 19; TEMP 97.5; O2SAT 99
[2025-01-01 05:00] VITALS: BP 125/75; PULSE 70; RESP 17; TEMP 97.5; O2SAT 94
--- NOTE | 2025-01-01 07:35 | ECG ---
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
[2025-01-01 08:00] VITALS: PULSE 56
[2025-01-01 08:13] LABS: Hematocrit 32.8 % (36.0-46.0); Hemoglobin 11.2 g/dL (12.2-16.2); Mean Corpuscular Hemoglobin 28.9 pg (28.0-32.0); Mean Corpuscular Volume 84.7 fL (80.0-100.0); Nucleated Red Blood Cells % 0.0 %
[2025-01-01 08:27] LABS: Anion Gap 11 (5-15); Carbon Dioxide 26 mmol/L (20-31); Chloride 105 mmol/L (98-107); Potassium 4.6 mmol/L (3.5-5.1); Sodium 142 mmol/L (136-145)
[2025-01-01 08:28] LABS: Calcium 9.7 mg/dL (8.7-10.4)
[2025-01-01 08:33] LABS: BUN/Creatinine Ratio 14.3 (10.0-20.0); Blood Urea Nitrogen 15 mg/dL (9-23); Glucose 89 mg/dL (74-106)
[2025-01-01 09:00] VITALS: BP 123/77; PULSE 70; RESP 16; TEMP 97.9; O2SAT 93
--- NOTE | 2025-01-01 10:55 | DVHPN2 ---
Subjective The patient is seen and examined at bedside. The patient complained of severe abdominal pain. The patient is allergic to [place] but can take morphine Reviewed: Care Plan, H&P, Labs, Medications, Previous Orders, Radiology Objective Vitals Vital Signs Date Time Temp Pulse Resp B/P (MAP) Pulse Ox O2 Delivery O2 Flow Rate FiO2 01/01/25 09:37 123/77 01/01/25 09:00 97.9 70 16 93 97.9 01/01/25 08:00 Room Air* 0 21 Intake/Output Intake and Output 01/01/25 07:00 Intake Total 740 ml Balance 740 ml Intake Oral 740 ml # Voids 6 General Appearance: Alert, Oriented X3, Cooperative, mild distress HEENT: Atraumatic, PERRLA, EOMI, Mucous membr. moist/pink Neck: Supple Lungs: Clear to auscultation, Normal air movement Cardiovascular: Regular rate, Normal S1, Normal S2, No murmurs, Gallops, Rubs Abdomen: Normal bowel sounds, Soft, No tenderness Neuro: Cranial nerves 3-12 NL Psych/Mental Status: Mental status NL Medications Current Medications Medications Dose Ordered Sig/Reena Route Start Time Stop Time Status Last Admin Dose Admin Atorvastatin Calcium 20 mg HS PO 12/29/24 22:00 12/31/24 21:32 20 MG Aspirin 81 mg DAILY PO 12/30/24 10:00 01/01/25 09:36 81 MG Ondansetron HCl 4 mg Q4HP PRN IV 12/29/24 20:15 12/31/24 18:35 4 MG Nitroglycerin 0.4 mg Q5MINP PRN SL 12/29/24 20:15 12/30/24 00:29 0.4 MG Enalapril Maleate 2.5 mg DAILY PO 12/30/24 10:00 01/01/25 09:37 2.5 MG Ceftriaxone Sodium 50 ml @ 100 mls/hr DAILY@ IV 01/01/25 09:00 UNV Laboratory Results Laboratory Tests 01/01/25 07:11 Chemistry Test 12/31/24 11:53 01/01/25 07:11 Calcium Level 10.3 mg/dL (8.7-10.4) 9.7 mg/dL (8.7-10.4) Assessment/Plan Assessment/Plan Chest pain rule out ACS Hypertension Chronic anemia Abdominal pain Continuing current management. We will give morphine PRN for abdominal pain. 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 Continuing hypertensive medication. will order CT abdomen and pelvis. If negative will DC home. CT scan abdomen and pelvis only show mild stool burden. Patient complains she has no BM for 5 days, however her chart state that she has 1 BM on 12/29 and she refuse stool softener. I will give her miralax and fleet enema x 1. I will DC her. ADDENDUM: Per RNNataliya, the patient complains of chest pain, BP 163/88, she stat she is dizzy, EKG : Normal sinus rhythm. ? panic attack. I will hold DC tonight. Will put in cardiology consult and Psy consult.DC morphine. This medical document was created using an electronic medical record system with [employer] dictation system. Although this document has been carefully reviewed, there may still be some phonetic and typographical errors. These areas are purely typographical due to imperfections of the software programs, and do not reflect any compromise in the patient's medical care. My Orders Orders - LAURA AL MD Procedure Category Date Status Time Ct Ab Pel Wo Con-No CT 12/31/24 Resulted Oral Or Iv 11:01 Complete Blood Count LAB 01/02/25 Verified 05:00 Complete Blood Count LAB 01/03/25 Verified 05:00 Complete Blood Count LAB 01/04/25 Verified 05:00 Complete Blood Count LAB 01/05/25 Verified 05:00 Basic Metabolic Panel LAB 01/02/25 Verified 05:00 Basic Metabolic Panel LAB 01/03/25 Verified 05:00 Basic Metabolic Panel LAB 01/04/25 Verified 05:00 Basic Metabolic Panel LAB 01/05/25 Verified 05:00 Discharge DISCHARGE 12/31/24 Transmitted 13:14 Ceftriaxone 1gm/50ml PHA 01/01/25 Pending (Rocephin) 09:00 Ceftriaxone 1gm/50ml PHA 12/31/24 Pending (Rocephin) 17:30 Urine Bacterial JAYANT 12/31/24 Logged Culture 20:30 *Tele Psych Consult CONS 12/31/24 Transmitted 23:06 * Cardiology Consult CONS 01/01/25 Transmitted 03:51 LAURA AL MD Jan 01, 2025 10:55
[2025-01-01] MEDS: DOXYCYCLINE 100 MG TAB/CAP PO ONE (12:22)
[2025-01-01] MEDS: POLYETHYLENE GLYCOL 17 GM PWDR PO ONE (12:22)
--- NOTE | 2025-01-01 12:23 | DVHCONRES ---
SYED WILKERSON RESIDENT 01/01/25 1223: Date Seen: Jan 01, 2025 Resident Creating Document: SYED WILKERSON RESIDENT Referring Physician LAURA AL MD Reason for Consultation chest pain History of Present Illness 64-year-old female admitted with chest pain associated with nausea, weakness, diaphoresis, and elevated BP (185/116 mmHg) NOW CONTROLLED its is 125/75. Pain was described as pressure-like and stabbing, radiating to the left arm and head. She also reported intermittent headaches and recent psychosocial stress due to bereavement. Clinical update: * Symptoms have improved since admission. * Troponins: Negative 4 (3, 3, 7, 5). * BNP: 432 ? 110 (improved). * EKGs: Serial studies show sinus rhythm, no ischemic changes. * Echocardiogram: EF 75%, mild LVH, mild LV diastolic dysfunction, mild RV dilation, aortic sclerosis, otherwise normal valves. * No new chest pain, dyspnea, or arrhythmia events today. Current Medications * Inpatient: Aspirin 81 mg PO daily, Atorvastatin 40 mg PO daily, Enalapril 2.5 mg PO daily, Nitroglycerin PRN, Ondansetron SL PRN. * Home meds: Pantoprazole, Ondansetron, Montelukast. Past Medical History Hypertension, hyperlipidemia, diabetes mellitus, GERD, anemia. Past Surgical History Right heminephrectomy, hernia repair, prior angiogram (2 years ago, medical management, no stent placed). No open-heart surgery. Family History: Diabetes mellitus G8 MOTHER Diabetes mellitus G8 MOTHER FH: HTN (hypertension) G8 FATHER Social History * Non-smoker, no alcohol, no illicit drug use. * Recent significant psychosocial stressor: of brother. Allergies: Coded Allergies: Acetaminophen (Verified Allergy, Severe, 12/31/23) Hydrocodone (Verified Allergy, Severe, 12/31/23) Ceftriaxone (Verified Allergy, Unknown, 12/31/23) Ciprofloxacin (Verified Allergy, Unknown, 12/31/23) Levofloxacin (Verified Allergy, Unknown, 12/31/23) Moxifloxacin (Verified Allergy, Unknown, 12/31/23) Trimethoprim (Verified Allergy, Unknown, 12/31/23) Home Meds Active Scripts Ondansetron Odt 4MG Tab (ZOFRAN PO) 4 Mg Tb, 4 MG SL QIDPRN PRN, #20 TAB ODT TAB-DISSOLVE IN MOUTH, THEN SWALLOW Prov:HAYES CASILLAS MD 12/31/23 Reported Medications Pantoprazole Sodium Sesquihydr (Pantoprazole Sodium) 40 Mg Tab, 1 TAB PO DAILY 12/30/24 Montelukast Sodium (MONTELUKAST SODIUM) 10 Mg Tab, 1 TAB PO DAILY 12/30/24 Tramadol Hcl (Tramadol Hcl) 50 Mg Tab, 1 TAB PO DAILYPRN PRN for pain 12/30/24 Current Medications Current Medications Medications (Trade) Dose Ordered Sig/Reena Route PRN Reason Start Time Stop Time Status Last Admin Ceftriaxone Sodium 50 ml @ 100 mls/hr DAILY@09 IV 01/01/25 09:00 UNV Doxycycline Monohydrate (Vibramycin Tablet) 100 mg Q12HR PO 01/01/25 22:00 01/01/25 11:43 DC Doxycycline Monohydrate (Vibramycin Tablet) 100 mg Q12HR PO 01/01/25 22:00 Review of Systems * Constitutional: Weakness, fatigue, diaphoresis. * Cardiac: Chest pain, radiating, no palpitations, no syncope. * Respiratory: No dyspnea, no orthopnea. * GI: Nausea, mild constipation, no vomiting, no melena/hematochezia. * Neuro: Intermittent headache, no focal deficits. * : No dysuria or hematuria. * Other systems: Negative unless stated. Vital Signs Vital Signs Date Time Temp Pulse Resp B/P (MAP) Pulse Ox O2 Delivery O2 Flow Rate FiO2 01/01/25 09:37 123/77 01/01/25 09:00 97.9 70 16 93 97.9 01/01/25 08:00 Room Air* 0 21 Physical Exam * General: Alert, oriented, mildly uncomfortable. * Vitals: BP elevated, previously 185/116 mmHg; currently improved but fluctuating. HR normal sinus. Afebrile. * CV: Regular rate and rhythm,, no gallop or rub. Mild LV heave. * Lungs: Clear to auscultation, no rales/wheezing. * Abdomen: Soft, mild stool burden, no organomegaly. * Extremities: No edema. * Neuro: Grossly intact. Labs/Diagnostic Data Labs Test 01/01/25 07:11 12/31/24 19:50 12/29/24 18:10 12/29/24 17:13 Range/Units White Blood Count 7.3 4.4-10.8 10^3/uL Red Blood Count 3.88 L 4.0-5.20 10^6/uL Hemoglobin 11.2 L 12.2-16.2 g/dL Hematocrit 32.8 #L 36.0-46.0 % Mean Corpuscular Volume 84.7 80.0-100.0 fL Mean Corpuscular Hemoglobin 28.9 28.0-32.0 pg Mean Corpuscular Hemoglobin Concent 34.1 32.0-36.0 g/dL Red Cell Distribution Width 13.7 11.8-14.3 % Platelet Count 375 140-450 10^3/uL Mean Platelet Volume 6.9 6.9-10.8 fL Neutrophils (%) (Auto) 54.7 37.0-80.0 % Lymphocytes (%) (Auto) 34.6 10.0-50.0 % Monocytes (%) (Auto) 7.3 0.0-12.0 % Eosinophils (%) (Auto) 2.9 0.0-7.0 % Basophils (%) (Auto) 0.5 0.0-2.0 % Neutrophils # (Auto) 4.0 1.6-8.6 10 ^3/uL Lymphocytes # (Auto) 2.5 0.4-5.4 10 ^3/uL Monocytes # (Auto) 0.5 0-1.3 10 ^3/uL Eosinophils # (Auto) 0.2 0-0.8 10 ^3/uL Basophils # (Auto) 0 0-0.2 10 ^3/uL Nucleated Red Blood Cells 0.0 % Sodium Level 142 136-145 mmol/L Potassium Level 4.6 3.5-5.1 mmol/L Chloride Level 105 98-107 mmol/L Carbon Dioxide Level 26 20-31 mmol/L Anion Gap 11 5-15 Blood Urea Nitrogen 15 9-23 mg/dL Creatinine 1.05 H 0.550-1.02 mg/dL Glomerular Filtration Rate Calc 59 >90 mL/min BUN/Creatinine Ratio 14.3 10.0-20.0 Serum Glucose 89 74-106 mg/dL Calcium Level 9.7 8.7-10.4 mg/dL Urine Opiates Screen Neg NEGATIVE Urine Fentanyl Screen Neg NEGATIVE Urine Barbiturates Screen Neg NEGATIVE Urine Phencyclidine Screen Neg NEGATIVE Urine Amphetamines Screen Neg NEGATIVE Urine Benzodiazepines Screen Neg NEGATIVE Urine Cocaine Screen Neg NEGATIVE Urine Cannabinoids Screen Neg NEGATIVE Troponin I High Sensitivity 3 L </=34 ng/L Total Bilirubin 0.2 0.2-1.0 mg/dL Aspartate Amino Transferase (AST) 27 13-40 U/L Alanine Aminotransferase (ALT) 19 7-40 U/L Alkaline Phosphatase 110 46-116 U/L B-Type Natriuretic Peptide 432.67 0-100 pg/mL Total Protein 7.6 5.7-8.2 g/dL Albumin 4.5 3.2-4.8 g/dL Assessment * Chest pain non-cardiac, ruled out unstable angina (low probability with negative troponins/ECG). prior angiogram (2 years ago, medical management, no stent placed) * Hypertensive urgency, improved. * LV diastolic dysfunction with preserved EF (HFpEF). * Aortic sclerosis. * Anxiety/stress-related chest discomfort. Plan/Recommendation Plan * Cleared from cardiology service at this time. ruled out unstable angina (low probability with negative troponins/ECG). prior angiogram (2 years ago, medical management, no stent placed) * Continue aspirin 81 mg PO daily, atorvastatin 40 mg PO nightly, and enalapril 2.5 mg PO daily. * Continue home medications as appropriate (pantoprazole, montelukast, ondansetron). * Manage anxiety/stress with primary team support. * Outpatient cardiology follow-up recommended for further evaluation of chest pain if recurrent . Consider stress testing or repeat angiography if symptoms persist or worsen on out patient basis * Risk factor modification for hypertension, hyperlipidemia, and diabetes mellitus. Case discussed in detail with Dr Taylor, including the clinical presentation, diagnostic workup, and comprehensive management plan. The patient was present for the discussion and demonstrated understanding of her condition and the proposed plan. Plan discussed with: Patient Visit Coding Cardiology RES Date of Service: Jan 01, 2025 Billing Provider: ELLIE TAYLOR MD Cardiology Common Codes: [id number] INP/OBS CARE (High) ELLIE TAYLOR MD 01/01/25 1330: Family History: Diabetes mellitus G8 MOTHER Diabetes mellitus G8 MOTHER FH: HTN (hypertension) G8 FATHER Allergies: Coded Allergies: Acetaminophen (Verified Allergy, Severe, 12/31/23) Hydrocodone (Verified Allergy, Severe, 12/31/23) Ceftriaxone (Verified Allergy, Unknown, 12/31/23) Ciprofloxacin (Verified Allergy, Unknown, 12/31/23) Levofloxacin (Verified Allergy, Unknown, 12/31/23) Moxifloxacin (Verified Allergy, Unknown, 12/31/23) Trimethoprim (Verified Allergy, Unknown, 12/31/23) Home Meds Active Scripts Ondansetron Odt 4MG Tab (ZOFRAN PO) 4 Mg Tb, 4 MG SL QIDPRN PRN, #20 TAB ODT TAB-DISSOLVE IN MOUTH, THEN SWALLOW Prov:HAYES CASILLAS MD 12/31/23 Reported Medications Pantoprazole Sodium Sesquihydr (Pantoprazole Sodium) 40 Mg Tab, 1 TAB PO DAILY 12/30/24 Montelukast Sodium (MONTELUKAST SODIUM) 10 Mg Tab, 1 TAB PO DAILY 12/30/24 Tramadol Hcl (Tramadol Hcl) 50 Mg Tab, 1 TAB PO DAILYPRN PRN for pain 12/30/24 Plan/Recommendation cv cleared for dc home trops are - normal lvef per pt, negative LHC in pat 2 years at another facility outpt fu Plan discussed with: Patient ROCKVICTORIANOTOMASA COHEN RESIDENT Jan 01, 2025 12:23 ELLIE TAYLOR MD Jan 01, 2025 13:30
--- NOTE | 2025-01-01 13:45 | DVHINCON2 ---
Date of Service if different f: Jan 01, 2025 Consultation ([facility]) Consulting Physician: ELLIE TAYLOR MD Labs Laboratory Tests Test 12/29/24 17:13 12/29/24 18:10 12/31/24 19:50 01/01/25 07:11 Total Bilirubin 0.2 mg/dL (0.2-1.0) Aspartate Amino Transf (AST/SGOT) 27 U/L (13-40) Alanine Aminotransferase (ALT/SGPT) 19 U/L (7-40) Alkaline Phosphatase 110 U/L (46-116) B-Type Natriuretic Peptide 432.67 pg/mL (0-100) Total Protein 7.6 g/dL (5.7-8.2) Albumin 4.5 g/dL (3.2-4.8) Troponin I High Sensitivity 3 ng/L (</=34) Urine Opiates Screen Neg (NEGATIVE) Urine Fentanyl Screen Neg (NEGATIVE) Urine Barbiturates Screen Neg (NEGATIVE) Urine Phencyclidine Screen Neg (NEGATIVE) Urine Amphetamines Screen Neg (NEGATIVE) Urine Benzodiazepines Screen Neg (NEGATIVE) Urine Cocaine Screen Neg (NEGATIVE) Urine Cannabinoids Screen Neg (NEGATIVE) White Blood Count 7.3 10^3/uL (4.4-10.8) Red Blood Count 3.88 10^6/uL (4.0-5.20) Hemoglobin 11.2 g/dL (12.2-16.2) Hematocrit 32.8 % (36.0-46.0) Mean Corpuscular Volume 84.7 fL (80.0-100.0) Mean Corpuscular Hemoglobin 28.9 pg (28.0-32.0) Mean Corpuscular Hemoglobin Concent 34.1 g/dL (32.0-36.0) Red Cell Distribution Width 13.7 % (11.8-14.3) Platelet Count 375 10^3/uL (140-450) Mean Platelet Volume 6.9 fL (6.9-10.8) Neutrophils (%) (Auto) 54.7 % (37.0-80.0) Lymphocytes (%) (Auto) 34.6 % (10.0-50.0) Monocytes (%) (Auto) 7.3 % (0.0-12.0) Eosinophils (%) (Auto) 2.9 % (0.0-7.0) Basophils (%) (Auto) 0.5 % (0.0-2.0) Neutrophils # (Auto) 4.0 10 ^3/uL (1.6-8.6) Lymphocytes # (Auto) 2.5 10 ^3/uL (0.4-5.4) Monocytes # (Auto) 0.5 10 ^3/uL (0-1.3) Eosinophils # (Auto) 0.2 10 ^3/uL (0-0.8) Basophils # (Auto) 0 10 ^3/uL (0-0.2) Nucleated Red Blood Cells 0.0 % Sodium Level 142 mmol/L (136-145) Potassium Level 4.6 mmol/L (3.5-5.1) Chloride Level 105 mmol/L (98-107) Carbon Dioxide Level 26 mmol/L (20-31) Anion Gap 11 (5-15) Blood Urea Nitrogen 15 mg/dL (9-23) Creatinine 1.05 mg/dL (0.550-1.02) Glomerular Filtration Rate Calc 59 mL/min (>90) BUN/Creatinine Ratio 14.3 (10.0-20.0) Serum Glucose 89 mg/dL (74-106) Calcium Level 9.7 mg/dL (8.7-10.4) Appetite: Good Appearance: Stated age, Groomed, Clean Psychomotor activity: WNL Behavioral: Cooperative Eye contact: Appropriate Affect: Appropriate, Mood Congruent Mood: Euthymic Thought processes: Linear/Goal-directed Thought content: WNL Suicidal ideations: Absent Homicidal ideations: Absent Orientation: Person, Place, Time, Situation Memory intact: Recent Intellect: Average Abstractability: WNL Concentration: Adequate Attention: Adequate Judgement: WNL Insight: Fair Vitals Vital Signs Date Time Temp Pulse Resp B/P (MAP) Pulse Ox O2 Delivery O2 Flow Rate FiO2 01/01/25 09:37 123/77 01/01/25 09:00 97.9 70 16 93 97.9 01/01/25 08:00 Room Air* 0 21 Current medications Current Medications Medications Dose Ordered Sig/Reena Route Start Time Stop Time Status Last Admin Dose Admin Atorvastatin Calcium 20 mg HS PO 12/29/24 22:00 12/31/24 21:32 20 MG Aspirin 81 mg DAILY PO 12/30/24 10:00 01/01/25 09:36 81 MG Ondansetron HCl 4 mg Q4HP PRN IV 12/29/24 20:15 12/31/24 18:35 4 MG Nitroglycerin 0.4 mg Q5MINP PRN SL 12/29/24 20:15 12/30/24 00:29 0.4 MG Enalapril Maleate 2.5 mg DAILY PO 12/30/24 10:00 01/01/25 09:37 2.5 MG Ceftriaxone Sodium 50 ml @ 100 mls/hr DAILY@09 IV 01/01/25 09:00 UNV Doxycycline Monohydrate 100 mg Q12HR PO 01/01/25 22:00 Diagnosis: adjustment disorder Plan : Patient denies any mood symptoms/suicidal/homicidal ideation. Patient may discharge home after medical clearance History of Present Illness Reason for Consult : per report from nurse, patient became anxious when told about discharge HPI : This is a 64-year-old female with no known prior psychiatric history, presents here for chest pain. On evaluation via telepsychiatry, patient is calm and smiling. She denies any mental health concerns. She reports being concerned that she was being discharged when she is still have abdominal pain. She reports not wanting to return to the hospital for the same concerns. She also wants pain medication and her pain addressed She denies depressed mood, feeling anxious, hopelessness or anhedonia. She denies suicidal/homicidal ideation. She denies auditory/visual hallucinations or paranoid thoughts. She reports adequate sleep and appetite. Past Psychiatric History : She denies prior mental health diagnoses. She denies prior psych admissions, holds or suicide attempts. She denies any history of psychotropic medications trials Past Medical History : per chart review Social History : She lives with her adult son and he provides for her financially. She is not employed or receiving any disability. She denies drug or alcohol use. She denies any known family history. LEONELA JOYNER DNP Jan 01, 2025 13:45
--- NOTE | 2025-01-01 14:48 | DVHDS2 ---
Discharge Summary Date of Admission Dec 29, 2024 at 20:01 Date of Discharge: Dec 31, 2024 Admitting Diagnosis Chest pain rule out ACS Hypertension Chronic anemia Abdominal pain Labs/Diagnostic Data: Laboratory Results Test 01/01/25 07:11 12/31/24 19:50 12/29/24 18:10 12/29/24 17:13 White Blood Count 7.3 10^3/uL (4.4-10.8) Red Blood Count 3.88 10^6/uL (4.0-5.20) Hemoglobin 11.2 g/dL (12.2-16.2) Hematocrit 32.8 % (36.0-46.0) Mean Corpuscular Volume 84.7 fL (80.0-100.0) Mean Corpuscular Hemoglobin 28.9 pg (28.0-32.0) Mean Corpuscular Hemoglobin Concent 34.1 g/dL (32.0-36.0) Red Cell Distribution Width 13.7 % (11.8-14.3) Platelet Count 375 10^3/uL (140-450) Mean Platelet Volume 6.9 fL (6.9-10.8) Neutrophils (%) (Auto) 54.7 % (37.0-80.0) Lymphocytes (%) (Auto) 34.6 % (10.0-50.0) Monocytes (%) (Auto) 7.3 % (0.0-12.0) Eosinophils (%) (Auto) 2.9 % (0.0-7.0) Basophils (%) (Auto) 0.5 % (0.0-2.0) Neutrophils # (Auto) 4.0 10 ^3/uL (1.6-8.6) Lymphocytes # (Auto) 2.5 10 ^3/uL (0.4-5.4) Monocytes # (Auto) 0.5 10 ^3/uL (0-1.3) Eosinophils # (Auto) 0.2 10 ^3/uL (0-0.8) Basophils # (Auto) 0 10 ^3/uL (0-0.2) Nucleated Red Blood Cells 0.0 % Sodium Level 142 mmol/L (136-145) Potassium Level 4.6 mmol/L (3.5-5.1) Chloride Level 105 mmol/L (98-107) Carbon Dioxide Level 26 mmol/L (20-31) Anion Gap 11 (5-15) Blood Urea Nitrogen 15 mg/dL (9-23) Creatinine 1.05 mg/dL (0.550-1.02) Glomerular Filtration Rate Calc 59 mL/min (>90) BUN/Creatinine Ratio 14.3 (10.0-20.0) Serum Glucose 89 mg/dL (74-106) Calcium Level 9.7 mg/dL (8.7-10.4) Urine Opiates Screen Neg (NEGATIVE) Urine Fentanyl Screen Neg (NEGATIVE) Urine Barbiturates Screen Neg (NEGATIVE) Urine Phencyclidine Screen Neg (NEGATIVE) Urine Amphetamines Screen Neg (NEGATIVE) Urine Benzodiazepines Screen Neg (NEGATIVE) Urine Cocaine Screen Neg (NEGATIVE) Urine Cannabinoids Screen Neg (NEGATIVE) Troponin I High Sensitivity 3 ng/L (</=34) Total Bilirubin 0.2 mg/dL (0.2-1.0) Aspartate Amino Transferase (AST) 27 U/L (13-40) Alanine Aminotransferase (ALT) 19 U/L (7-40) Alkaline Phosphatase 110 U/L (46-116) B-Type Natriuretic Peptide 432.67 pg/mL (0-100) Total Protein 7.6 g/dL (5.7-8.2) Albumin 4.5 g/dL (3.2-4.8) Other Laboratory Tests 01/01/25 07:11 Brief Hx & Hospital Course: This is a 64 years old female come into emergency department because of chest pain. The patient and dose 40 history of substernal pressure-like chest pain with sharp numbness and nonradiating. Also reports left arm numbness and intermittent headache. The patient's EKG was done showed no acute process. The patient's troponin level is normal x2. [facility] [employer] [employer] see the patient and did an echo. Echo is normal. No further intervention per juvenile counselor's. The chest pain is not come from cardiac source. The patient then complained of severe abdominal pain. However she had been requests morphine around the clock. CT scan showed mild stool burden. The patient received MiraLax and Fleet enema. The patient claimed that she did not have bowel movement for five days however there is a document of bowel movement in 12/29 in her record. The patient refused to go home and stated that she needs a GI specialist for colonoscopy and an endoscopy. I explained to her that her hemoglobin is stable. No abnormality that required GI workup. I explained to her her abdominal pain due to overuse of narcotic and mild constipation. She can schedule it as outpatient with her primary care physician. I will not consult GI specialist because there is no indication for endoscopy and colonoscopy inpatient. Telepsych also was consulted for possible panic attack that cause chest pain. Per psychiatrist's the patient had adjustment disorder but no panic attack. The patient adamant request pain medication for her abdominal pain at home. I explained to her that she should not use narcotics for abdominal pain due to constipation. She should have eating more fiber food, drink more water, avoid narcotics, and discuss with her primary care physician if she needs further workup for abdominal pain. As right now based on her imaging starting there is no abnormality from her abdomen. On top of it when she come in her main concern is her chest pain. And chest pain workup had been done and ruled out cardiac cause. Physical exam: HEENT: Normocephalic atraumatic pupils equal react to light and accommodation. Extraocular muscles intact, conjunctiva pink, oropharynx moist, no thrush, no exudate. Lymphatic: No lymphadenopathy Cardiovascular exam: S1, S2 was heard. No murmurs, rubs, gallops Lung: Clear on auscultation bilaterally, no wheeze, rale, rhonchi. GI: Abdominal soft, nondistended, nontenderness, positive bowel sounds. Extremity: No crepitus, cyanosis, edema. Pedal pulses present bilateral. Full range of motion. Skin: Normal turgor, no rash. Psych: Alert, oriented x3. Neurology: No focal deficits, cranial nerve II to XII grossly intact. This medical document was created using an electronic medical record system with [employer] direct computerized dictation system. Although this document has been carefully reviewed, there may still be some phonetic and typographical errors. These areas are purely typographical due to imperfections of the software programs, and do not reflect any compromise in the patient's medical care. Condition at Discharge: Stable Final Diagnosis/Problems List Chest pain rule out ACS Hypertension Chronic anemia Abdominal pain due to constipation Discharge Disposition: Home Discharge Instruct/Medications Diet: Cardiac 2g Na,low cholest Activity: No Restrictions, As Tolerated Follow Up/Referral: PCP 1-2 WEEKS Medications: RESUME HOME MED Scheduled Docusate Sodium (Colace), 1 CAP PO BID Doxycycline Hyclate (Doxycycline Hyclate), 2 CAP PO BID Montelukast Sodium (Montelukast Sodium), 1 TAB PO DAILY, (Reported) Pantoprazole Sodium Sesquihydr (Pantoprazole Sodium), 1 TAB PO DAILY, (Reported) Scheduled PRN Ondansetron Odt 4MG Tab (Zofran Po), 4 MG SL QIDPRN PRN Tramadol Hcl (Tramadol Hcl), 1 TAB PO DAILYPRN PRN for pain, (Reported) Discharge Statement: "Patient was advised to return to the ER or call 911 if any headaches, dizziness, shortness of breath, chest pain, abdominal pain, bleeding, fevers, or worsening of medical condition. Patient was counseled about treatment plan, medications, possible side effects, patientverbalized understanding. All questions were answered to the best of my ability. This discharge took greater then 30 minutes in planning, reviewing documentation, counseling the patient, and discussing with other team members." ASSESSMENT ASSESSMENT Assessment CHEST PAIN, GASTROENTERITIS Date of Service: Jan 01, 2025 Billing Provider: LAURA AL MD Common Visit Codes: 56798-OIR/OBS DISCH DAY >30min LAURA AL MD Jan 01, 2025 14:48
[2025-01-01 15:13] VITALS: BP 123/77; TEMP 36.6
[2025-01-01 17:00] VITALS: BP 128/91; PULSE 74; RESP 16; TEMP 98.1; O2SAT 98
[2025-01-01] MEDS ORDERED: DOXY50CA PO (17:09)
[2025-01-01] MEDS ORDERED: DOCU-94 PO (17:09)
[2025-01-01] MEDS ORDERED: DOXYCYCLINE 100 MG TAB/CAP PO SCH ×2 (22:00)
== END 2025-01-01 18:18 | disposition home or self-care (01) | DRG 313 ==
LOC: ER 16:39 → OVERFLOW 20:01 → TELE-WESTW 20:06
PROVIDERS: ADMIT Internal Medicine; ATTEND Internal Medicine
DX: R07.89 Other chest pain (principal); I50.32 Chronic diastolic (congestive) heart failure; K52.9 Noninfective gastroenteritis and colitis, unspecified; D64.9 Anemia, unspecified; K59.00 Constipation, unspecified; F43.20 Adjustment disorder, unspecified; E78.5 Hyperlipidemia, unspecified; E11.9 Type 2 diabetes mellitus without complications; F41.0 Panic disorder [episodic paroxysmal anxiety]; K21.9 Gastro-esophageal reflux disease without esophagitis; I16.0 Hypertensive urgency; I11.0 Hypertensive heart disease with heart failure; I70.0 Atherosclerosis of aorta; Z90.5 Acquired absence of kidney; Z90.49 Acquired absence of other specified parts of digestive tract; Z88.6 Allergy status to analgesic agent; Z88.5 Allergy status to narcotic agent; Z88.3 Allergy status to other anti-infective agents; Z88.1 Allergy status to other antibiotic agents; F41.9 Anxiety disorder, unspecified
CPT/HCPCS: 36415; 71045; 74176; 80048; 80053; 80307; 83880; 84484; 85025; 87086; 93005; 93306; G0378; J1885; J2405